=== PATIENT | female | born 1955 | race African-American/Black ===

== ENCOUNTER 2017-09-22 20:51 | Emergency (ER) | payer OTHER ==
[2017-09-22] MEDS ORDERED: Acetaminophen 500 MG TAB ONE (20:56)
[2017-09-22] MEDS ORDERED: Ibuprofen 800 MG TAB ONE (23:52)
== END 2017-09-22 23:59 | disposition home or self-care (01) ==
LOC: ERS 20:51
DX: J11.1 Influenza due to unidentified influenza virus with other respiratory manifestations (principal); I10 Essential (primary) hypertension; Z79.899 Other long term (current) drug therapy
CPT/HCPCS: 87804; 99283